=== PATIENT | female | born 1945 | race Two or more races ===

== ENCOUNTER 2019-08-04 06:10 | Day surgery (SDC) | payer OTHER ==
[~2019-08-04 06:10] MED LIST: HYZAAR PO
== END 2019-08-04 12:20 | disposition home or self-care (01) ==
LOC: CIR.AMB 06:10
PROVIDERS: ATTEND Anesthesiology Pain Medicine
DX: M51.26 Other intervertebral disc displacement, lumbar region (principal); M99.53 Intervertebral disc stenosis of neural canal of lumbar region